=== PATIENT | female | born 1930 | race Caucasian/White ===

== ENCOUNTER 2016-04-06 16:11 | Emergency (ER) | payer OTHER ==
--- NOTE | 2016-04-06 17:48 | DIAGNOSTIC IMAGING REPORT ---
PROCEDURE: XR CHEST 1 VIEW INDICATION: CHEST PAIN TECHNIQUE: Portable AP view 05:11 p.m. COMPARISON: Chest 01/29/14 FINDINGS: Lungs are clear. Heart and mediastinum are normal. There is a central line on the right. The tip is in the superior vena cava. Clips and wires are present from previous cardiac surgery. IMPRESSION: 1. No acute disease.
--- NOTE | 2016-04-07 12:57 | ED CLINICAL REPORT ---
Clinical Report - Physicians/Mid Levels [facility] [address] [place] [address] 04/06/2016 16:12 Patient: EAMON SHORT Time Seen: 16:36. Arrived- By ambulance. Historian- patient and EMS personnel. History limited by vague historian. HISTORY OF PRESENT ILLNESS Chief Complaint: CHEST PAIN. At its maximum, severity described as 7 / 10. When seen in the E.D., it was gone. It is described as sharp and it is described as located in the right chest, central chest and left chest area. No radiation. This started today and is now gone. It was abrupt in onset and has been intermittent. Onset during vomiting during dialysis. The patient has had nausea. She has had vomiting. The vomiting has occurred only once. No blood-tinged emesis, coffee-grounds emesis or frankly bloody emesis. No difficulty breathing or diaphoresis. REVIEW OF SYSTEMS No chills, fever, sweats, calf pain or difficulty breathing. No pedal edema, palpitations, abdominal pain, black stools or bloody stools. No constipation or urinary problems. She has had a moderate cough productive of moderate amounts of clear, yellow sputum (for 2 weeks). She has had diarrhea (recently - gone now). All systems otherwise negative, except as recorded above. 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 Problems: Renal Failure. CVA - Cerebrovascular Accident. End stage renal failure on dialysis. Congestive Heart Failure. Diabetes Mellitus. Hypertension. Additional Surgeries: Amputation Below Knee. Medications: OxyCODONE HCl Oral (Tablet 5 mg) 1-1/2 tablets, every 3 hours as needed. Insulin Lispro (Human) Subcutaneous (Solution 100 unit/mL) (sliding scale 151-175 1 unit 178-200 2 units 201-225 3 units 226-250 4 unit 251-275 5 units 276-300 6 units 301 - 325 7 units 326-350 8 units 351-375 9 units 376-400 10 units over that call ). Insulin Lispro (Human) Subcutaneous 3 units, before meals. Senna Oral (Tablet 8.6 mg) 1 tablet, 2 times a day. Isosorbide Mononitrate ER Oral (Tablet Extended Release 24 Hour 30 mg) 1 tablet, 3 times a day. Docusate Sodium Oral (Capsule 100 mg) 1 capsule, 2 times a day. Carvedilol Oral (Tablet 12.5 mg) 1 tablet, 2 times a day. Calcium Carbonate Oral (Tablet Chewable 500 mg) 2 tablets, 2 times a day. Venlafaxine HCl ER Oral (Tablet Extended Release 24 Hour 75 mg) 1 tablet, at bedtime. Theravim-M Oral 1 tablet, daily. Spironolactone Oral (Tablet 50 mg) 1 tablet, daily. Omeprazole Oral (Capsule Delayed Release 40 mg) 1 capsule, daily. Nepro shake. Latanoprost Ophthalmic 1 drops, bedtime (1 drop right eye). Levofloxacin Oral (Tablet 750 mg) 1 tablet, daily. Furosemide Oral (Tablet 80 mg) 1 tablet, daily. Ferrous Sulfate Oral (Tablet 325 (65 Fe) mg) 1 tablet, daily. Cholecalciferol Oral (Tablet 2000 unit) 1 tablet, daily. Ascorbic Acid Oral (Tablet Chewable 500 mg) 1 tablet, daily. Vitamin c Oral. Atorvastatin Calcium Oral (Tablet 80 mg) 1 tablet, daily. Allergies: Penicillins. SOCIAL HISTORY Former smoker, end date 2011. Residence: [facility] Resides in a senior living. FAMILY HISTORY Heart disease in first-degree relative (sibling); cancer in first-degree relative (mother). ADDITIONAL NOTES The nursing notes have been reviewed. PHYSICAL EXAM Vital Signs: 04/06/2016 16:15 BP: 93/43. HR: 87. RR: 16. Have been reviewed. Appearance: Alert. Eyes: Pupils equal, round and reactive to light. ENT: Pharynx normal. Neck: Normal inspection. Neck supple. No JVD. CVS: Tachycardia. Abnormal rhythm, which is irregularly irregular. Respiratory: No respiratory distress. (rattle over the large airways of the R chest). Abdomen: Soft and nontender. Bowel sounds normal. No organomegaly. No mass. Obese. Skin: Skin warm and dry. Extremities: No calf tenderness. (R BKA). LABS, X-RAYS, AND EKG EKG: Rate: 142. Atrial fibrillation. LBBB. Changes present when compared to prior EKG. (an EKG of 29 January 2014 showed a left bundle branch block however today she is in atrial fibrillation with a rapid ventricular response as well). EKG #2: EKG time: (533). Normal sinus rhythm. Rate: 79. Normal P waves. Normal CHRIS. Wide QRS- intraventricular conduction delay. LBBB. Normal axis. Normal ST and T waves. Prolonged QTc (486). Changes present when compared to prior EKG. (No longer in A fib). The study has been interpreted contemporaneously by me. The study has been independently viewed by me. The EKG appears to be a good tracing. Interpretation time: 533. Chest X-ray: (IMPRESSION: 1. No acute disease.). The X-rays were interpreted by the radiologist and contemporaneously by me. Laboratory Tests: Magnesium: (ELAINE: 04/07/2016 07:05) ( [facility] 04/07/2016 08:40) Final results Test Result Flag Units (Reference) MAGNESIUM 2.3 mg/dL (1.8-2.4) CPK 35 U/L (24-260) TROPONIN I 0.75 ng/mL (0.00-1.5) TROPONIN REFERENCE RANGE:<0.1 NEGATIVE0.1-1.5 INDETERMINANT>1.5 POSITIVE CPK: (ELAINE: 04/07/2016 00:55) ( [facility] 04/07/2016 01:19) Final results Test Result Flag Units (Reference) CPK 32 U/L (24-260) TROPONIN I 0.34 ng/mL (0.00-1.5) TROPONIN REFERENCE RANGE:<0.1 NEGATIVE0.1-1.5 INDETERMINANT>1.5 POSITIVE CBC w Diff: (ELAINE: 04/06/2016 17:00) ( [facility] 04/06/2016 17:09) Final results Test Result Flag Units (Reference) WHITE BLOOD COUNT 8.0 K/uL (4.5-11.5) RED BLOOD COUNT 3.56 L M/uL (4.00-5.20) HEMOGLOBIN 11.9 L gm/dL (12.0-16.0) HEMATOCRIT 36.9 % (36.0-46.0) MEAN CELL VOLUME 104 H fL (80-100) MEAN CORPUSCULAR HGB 34 pg (26-34) MEAN CORPUSCULAR HGB CONC 32 g/dL (31-37) RED CELL DISTRIBUTION WIDTH 15.2 H % (11.6-14.8) PLATELET COUNT 106 L K/uL (150-400) NEUTROPHIL % 85.8 H % (50-75) LYMPH % 8.3 L % (25-40) MONO % 4.7 % (3-14) EOSINOPHIL % 0.8 % (0-4) BASOPHIL % 0.4 % (0-2) BNP: (ELAINE: 04/06/2016 17:00) ( [facility] 04/06/2016 17:33) Final results Test Result Flag Units (Reference) B-TYPE NATRIURETIC PEPTIDE 1170 H pg/ml (5-100) Lipase: (ELAINE: 04/06/2016 17:00) ( [facility] 04/06/2016 17:31) Final results Test Result Flag Units (Reference) LIPASE 168 U/L (73-393) AMYLASE 80 U/L (25-115) THYROID STIMULATING HORMONE 3.606 uIU/mL (0.30-3.74) CHEM 13 PANEL: (ELAINE: 04/06/2016 17:00) ( [facility] 04/06/2016 17:23) Final results Test Result Flag Units (Reference) GLUCOSE 222 H mg/dL (70-110) BUN 34 H mg/dL (7-18) CREATININE 2.3 H mg/dL (0.6-1.3) Estimated GFR 21.42 mL/min Estimated GFR- 25.96 mL/min Note: Persistent reduction over 3 months in eGFR<60 mL/min/1.73 m2 defines CKD. Patients with eGFR values>=60 mL/min/1.73 m2 may also have CKD if evidence ofpersistent proteinuria. Additional information may be foundat www.[email or web address].org. SODIUM 136 mmol/L (136-145) POTASSIUM 4.1 mmol/L (3.5-5.1) CHLORIDE 100 mmol/L (98-107) CARBON DIOXIDE 26 mmol/L (21-32) CALCIUM 7.7 L mg/dL (8.5-10.1) TOTAL PROTEIN 8.4 H g/dL (6.4-8.2) ALBUMIN 2.7 L g/dL (3.3-5.0) BILIRUBIN, TOTAL 0.6 mg/dL (0.0-1.0) ALKALINE PHOSPHATASE 106 U/L (46-116) AST (SGOT) 39 H U/L (15-37) ALT (SGPT) 32 U/L (12-78) CPK 31 U/L (24-260) MAGNESIUM 1.6 L mg/dL (1.8-2.4) TROPONIN I <0.05 ng/mL (0.00-1.5) TROPONIN REFERENCE RANGE:<0.1 NEGATIVE0.1-1.5 INDETERMINANT>1.5 POSITIVE . PROGRESS AND PROCEDURES Course of Care: 21:08 04/06/16. calls were made to [facility], and the [facility]. No beds are available at any of these facilities. I discussed the case with Dr. Dumont at change of shift. We reviewed the patient's history and exam and the results of her studies. He will manage her care and will arrange an appropriate disposition. - MW 09:36 04/07/16. Case D/W Dr. Duffy. Still looking for a bed with dialysis as well as cardiology services. Troponins are elevating, but still in nl range. spoke with cardiology in [place]. Discussed with ball holder transfer. High Tension Tester [place] Also discussed the long transport time and concern for worsening condition. They do have beds available. Discussed with cardiology how we had discharged to have the [place] some [place]. We had called from [place] although a 22, without any success in finding a bed. For example we had contacted [facility], [facility], [facility], [facility], [place] [facility], etc. Reported that they will find a bed. received a call approximately half an hour after had discussion with the transfer service and with cardiology. They will accept the patient. They are however waiting for beds. Half an hour after speaking with the transfer service. They were unable to find a bed available. Unclear exactly what has happened in the patient's transfer. In speaking with the patient shortly after this, the patient flat out refuses to be transferred to any facility or be admitted anywhere. I discussed with the patient her workup here in the emergency department and our concern for heart attack. Patient said to me "i'm not having a heart attack. I had one in the past. I know exactly what it feels like." I discussion with patient in regards to troponin and exactly what this means as well as pathophysiology. The patient is alert and oriented 4. Patient also stated at the end while asking the date " I'm no dummy. " offered patient's food and drink as well as other arrangements if she were to stay. Patient still refuses to stay. Do not feel I can force patient to undergo invasive medical procedures against her will. The patient reports that she lives in a facility and her primary care doctor lives in the same building. Patient reports that she can follow up with her doctor. Patient is aware of the risks of leaving AGAINST MEDICAL ADVICE. Do not feel having patient sign a form discussing this would be of any benefit at this time and would only strained the doctor patient relationship. attempted to contact family however were unsuccessful. Arranged transport for patient and patient left without further incident. Critical care performed (90 minutes). Time is exclusive of separately billable procedures. Time includes: direct patient care, patient reassessment, coordination of patient care, interpretation of data (laboratory data), review of patient's medical records, medical consultation and documentation of patient care. Patient/family counseled. Disposition: Discharged. Condition: serious. CLINICAL IMPRESSION 04/07/2016 11:55 BP: 149/48. HR: 76. O2 saturation: 96%. Hypertensive. Oxygen saturation normal. Acute myocardial infarction with elevated markers and no ST elevation (NSTEMI). INSTRUCTIONS Warnings: GENERAL WARNINGS: Return or contact your physician immediately if your condition worsens or changes unexpectedly, if not improving as expected, or if other problems arise. SPECIFICALLY, return if you develop chest, neck, jaw, shoulder, arm, or back pain, difficulty breathing, a fluttering sensation in your chest, lightheadedness, fainting, excessive fatigue, or sudden sweating. Your Current Medications: CONTINUE TAKING THE FOLLOWING MEDICATIONS: Ascorbic Acid Oral : Tablet Chewable 500 mg, 1 tablet daily. Atorvastatin Calcium Oral : Tablet 80 mg, 1 tablet daily. Calcium Carbonate Oral : Tablet Chewable 500 mg, 2 tablets 2 times a day. Carvedilol Oral : Tablet 12.5 mg, 1 tablet 2 times a day. Cholecalciferol Oral : Tablet 2000 unit, 1 tablet daily. Docusate Sodium Oral : Capsule 100 mg, 1 capsule 2 times a day. Ferrous Sulfate Oral : Tablet 325 (65 Fe) mg, 1 tablet daily. Furosemide Oral : Tablet 80 mg, 1 tablet daily. Insulin Lispro (Human) Subcutaneous : Solution 100 unit/mL, sliding scale 151-175 1 unit 178-200 2 units 201-225 3 units 226-250 4 unit 251-275 5 units 276-300 6 units 301 - 325 7 units 326-350 8 units 351-375 9 units 376-400 10 units over that call MD. Insulin Lispro (Human) Subcutaneous : 3 units before meals. Isosorbide Mononitrate ER Oral : Tablet Extended Release 24 Hour 30 mg, 1 tablet 3 times a day. Latanoprost Ophthalmic : 1 drops bedtime, 1 drop right eye. Levofloxacin Oral : Tablet 750 mg, 1 tablet daily. Quintin saavedra*. Omeprazole Oral : Capsule Delayed Release 40 mg, 1 capsule daily. OxyCODONE HCl Oral : Tablet 5 mg, 1-1/2 tablets every 3 hours as needed. Senna Oral : Tablet 8.6 mg, 1 tablet 2 times a day. Spironolactone Oral : Tablet 50 mg, 1 tablet daily. Theravim-M Oral : 1 tablet daily. Venlafaxine HCl ER Oral : Tablet Extended Release 24 Hour 75 mg, 1 tablet at bedtime. Vitamin c Oral. Follow-up: Return to the emergency department as needed. Follow up with your doctor in one day. Reason for referral: recheck today's concerns. Summary of care provided to patient via paper. Screening today revealed the patient's blood pressure to be in the normal range. The patient should follow up with a primary care provider for blood pressure management. Understanding of the discharge instructions verbalized by patient. Follow-up with: Shital Quinones MD, Cardiology, , [facility] - [facility], [address], [facility], [address] Follow up in three days. Reason for referral: contact if you do not have a ball holder. Summary of care provided to patient via paper. (Electronically signed by Trevor Duffy Dr. 04/10/2016 15:47)
--- NOTE | 2016-04-07 12:57 | ED ORDER SUMMARY ---
..... Patient: EAMON SHORT OrderSheet [facility] VisitID: [id number] [address] [place] [address] 86y, F Registration Date/Time: 04/06/2016 ORDER SHEET Weight: 71.2 kg Allergies: Penicillins GENERAL ORDERS: CMP Urgent (16:45 04/06/2016 MWinterer R.N. verbal order read back to Maury YANCEY) (Ack 17:12 Jody) (17:31 [facility] ER Tech1) CBC w Diff Urgent (16:45 04/06/2016 MWinterer R.N. verbal order read back to Maury YANCEY) (Ack 17:12 Jody) (17:31 [facility] ER Tech1) Cardiac Panel Stat (16:45 04/06/2016 MWinterer R.N. verbal order read back to Maury YANCEY) (Ack 17:12 Jody) (17:31 [facility] ER Tech1) Amylase Urgent (16:45 04/06/2016 MWinterer R.N. verbal order read back to Maury YANCEY) (Ack 17:12 Jody) (17:31 [facility] ER Tech1) Lipase Urgent (16:45 04/06/2016 MWinterer R.N. verbal order read back to Maury YANCEY) (Ack 17:12 Jody) (17:31 [facility] ER Tech1) TSH Urgent (16:45 04/06/2016 MWinterer R.N. verbal order read back to Maury YANCEY) (Ack 17:12 Jody) (17:31 [facility] ER Tech1) Chest 1V Urgent (17:00 04/06/2016 Maury YANCEY) (Ack 17:12 Jody) (17:18 OHdevnandez) Cardiac Cath Lab Manager (Continuous) (17:00 04/06/2016 Maury YANCEY) (17:14 Refugio R.N.) BNP Urgent (17:00 04/06/2016 Maury YANCEY) (Ack 17:12 Jody) (17:31 [facility] ER Tech1) Oxygen (2 L/min) (NC) (17:00 04/06/2016 Maury YANCEY) (17:14 EInderbitzen R.N.) Pulse oximeter (17:00 04/06/2016 Maury YANCEY) (17:14 EInderbitzen R.N.) EKG - ER Stat (17:00 04/06/2016 Maury YANCEY) (17:14 EInderbitzen R.N.) Troponin-I Urgent (00:43 04/07/2016 EInderbitzen R.N. verbal order read back to Mychal Adams) (Ack 0:47 AMcQuoid ER Tech1) (1:17 AMcQuoid ER Tech1) CPK Urgent (00:43 04/07/2016 EInderbitzen R.N. verbal order read back to Mychal Adams) (Ack 0:47 AMcQuoid ER Tech1) (1:17 AMcQuoid ER Tech1) EKG - ER Stat (05:28 04/07/2016 Mychal Adams) (5:53 CHategekimana) CPK Urgent (06:22 04/07/2016 Mychal Adams) (Ack 6:36 AMcQuoid ER Tech1) (13:20 [facility] ER Tech1) Troponin-I Urgent (06:22 04/07/2016 Mychal Adams) (Ack 6:36 AMcQuoid ER Tech1) (13:20 [facility] ER Tech1) Magnesium Urgent (06:22 04/07/2016 Mychal Adams) (Ack 6:36 AMcQuoid ER Tech1) (13:20 [facility] ER Tech1) MEDICATION ORDERS: IV FLUIDS: IV Saline Lock (17:00 04/06/2016 Maury YANCEY) (17:21 EInderbitzen R.N.) Magnesium Sulfate IV 2 gm/50mL (HIGH ALERT MEDICATION, NOW, over 2 hours) (21:30 04/06/2016 Mychal Adams) (Ack 21:47 EInderbitzen R.N.) (21:55 EInderbitzen R.N.) ORDER SHEET NOTES: [Electronically signed by Fiona Dey R.N. (14:16 04/07/2016)] [Electronically signed by Trevor Duffy Dr. (15:47 04/10/2016)] [Electronically locked/signed by Fiona Dey R.N. (14:16 04/07/2016)]
--- NOTE | 2016-04-07 12:57 | ED NURSING NOTES ---
Clinical Report - Nurses [place] [address] [place] [address] 04/06/2016 16:12 Patient: EAMON SHORT TRIAGE Triage time 16:15 Apr 06 2016. Acuity: LEVEL 3. Chief Complaint: CHEST PAIN. SEPSIS SCREEN: Sepsis Screen. Negative (no infection suspected/documented). --16:23 Selin Park R.N. 16:15 04/06/16. BP: 93/43. HR: 87. RR: 16. Pain level now 10/11. --16:23 Selin Park R.N. Weight: 71.2 kg. Height/Length: 64 inches. BMI: 27. --16:14 Selin Park R.N. Medications Atorvastatin Calcium Oral (Tablet 80 mg) 1 tablet, daily. --19:50 Selin Park R.N. Ascorbic Acid Oral (Tablet Chewable 500 mg) 1 tablet, daily. Vitamin c Oral. --19:50 Selin Park R.N. Cholecalciferol Oral (Tablet 2000 unit) 1 tablet, daily. --19:51 Selin Park R.N. Ferrous Sulfate Oral (Tablet 325 (65 Fe) mg) 1 tablet, daily. --19:51 Selin Park R.N. Furosemide Oral (Tablet 80 mg) 1 tablet, daily. --19:51 Seiln Park R.N. Levofloxacin Oral (Tablet 750 mg) 1 tablet, daily. --19:52 Selin Park R.N. Latanoprost Ophthalmic 1 drops, bedtime (1 drop right eye). --19:53 Selin Park R.N. Nepro shake. --19:53 Selin Park R.N. Omeprazole Oral (Capsule Delayed Release 40 mg) 1 capsule, daily. --19:53 Selin Park R.N. Spironolactone Oral (Tablet 50 mg) 1 tablet, daily. --19:54 Selin Park R.N. Theravim-M Oral 1 tablet, daily. --19:54 Selin Park R.N. Venlafaxine HCl ER Oral (Tablet Extended Release 24 Hour 75 mg) 1 tablet, at bedtime. --19:55 Selin Park R.N. Calcium Carbonate Oral (Tablet Chewable 500 mg) 2 tablets, 2 times a day. --19:56 Selin Park R.N. Carvedilol Oral (Tablet 12.5 mg) 1 tablet, 2 times a day. --19:57 Selin Park R.N. Docusate Sodium Oral (Capsule 100 mg) 1 capsule, 2 times a day. --19:57 Selin Park R.N. Isosorbide Mononitrate ER Oral (Tablet Extended Release 24 Hour 30 mg) 1 tablet, 3 times a day. --19:58 Selin Park R.N. Senna Oral (Tablet 8.6 mg) 1 tablet, 2 times a day. --19:59 Selin Park R.N. Insulin Lispro (Human) Subcutaneous 3 units, before meals. --20:00 Selin Park R.N. Insulin Lispro (Human) Subcutaneous (Solution 100 unit/mL) (sliding scale 151-175 1 unit 178-200 2 units 201-225 3 units 226-250 4 unit 251-275 5 units 276-300 6 units 301 - 325 7 units 326-350 8 units 351-375 9 units 376-400 10 units over that call MD). --20:03 Selin Park R.N. OxyCODONE HCl Oral (Tablet 5 mg) 1-1/2 tablets, every 3 hours as needed. --20:03 Selin Park R.N. Medication/allergy information source: the patient. --16:23 Selin Park R.N. Allergies Penicillins. --16:16 Selin Park R.N. History Arrived by EMS. Historian: patient. This started just prior to arrival. ( chest pain while at dialysis today. sl nitro x 1 and pain resolved.). She has had nausea. She has had a cough (3 weeks, productive). No difficulty breathing, sweating episodes, vomiting or fever. Treatment PHOTOGRAMMETRIC COMPILATION SPECIALIST: (nitroglycerine x 1). PAST MEDICAL HX: Immunizations: has received pneumonia vaccine; seasonal influenza. SOCIAL HX: Former smoker. No alcohol use or drug use. No infectious disease exposure. ABUSE ASSESSMENT: No report of abuse. SELF HARM ASSESSMENT: A self harm assessment was performed. The patient answered "no" to the question "Have you recently felt down, depressed, or hopeless?", "Have you noticed less interest or pleasure in doing things?", "Do you have thoughts of harming or killing yourself?", "Are you here because you tried to hurt yourself?", "Have you ever tried to hurt yourself before today?", "Have you recently had thoughts about harming or killing others?" and "Do you have any dangerous items in your possession?". --16:23 Selin Park R.N. NUTRITIONAL RISK ASSESSMENT: The nutritional risk assessment revealed no deficiencies. FUNCTIONAL ASSESSMENT: Functional assessment: no impairments noted. Functional assessment performed: requires assistance with the activities of daily living; mobility impairment present- this mobility impairment is an ongoing problem; wears glasses- this visual impairment is an ongoing problem. The patient is under physician care for hers functional impairment. No communication barrier. No hearing impairment. No cognitive impairment. LEARNING NEEDS ASSESSMENT: The learning needs assessment revealed no barriers. FALL RISK ASSESSMENT: Fall risk assessment completed. Risk factors identified include patient age greater than 65 years and impairment of mobility. Fall interventions initiated. Patient placed on stretcher. Side rails up x2. Brakes on Bed in low position. Patient visible from nurses' station. Instructed not to get up without assistance. SKIN INTEGRITY ASSESSMENT: Skin integrity risk assessment completed. No skin integrity risk identified. --16:24 Selin Park R.N. PROBLEMS: End stage renal failure on dialysis. Congestive Heart Failure. Diabetes Mellitus. Hypertension. --16:17 Selin Park R.N. CVA - Cerebrovascular Accident. --16:25 Selin Park R.N. Interventions ID band on patient. --16:23 Selin Park R.N. PHYSICAL ASSESSMENT ( Vas cath dual port in right upper chest). GENERAL / NEURO / PSYCH: Alert. Oriented X 4. HEENT: Mucous membranes are pink. RESPIRATORY: Respirations not labored. ( rhonchi in bases). CVS: Heart sounds within normal limits. ( edema left arm). Capillary refill less than 2 seconds. GI / : Abdomen soft. EXTREMITIES: No lower extremity edema. ( right below knee amputation). SKIN: Skin is warm and dry. Normal skin turgor. --16:27 Selin Park R.N. NURSING PROGRESS NOTES 16:25 04/06/16. The initial plan of care for this patient includes an assessment with efforts to address the presence of pain; impairment of the cardiovascular system. This plan of care was discussed with the patient. residential framing carpenter, pulse oximeter and NIBP monitor placed on patient; customer support agent- Lead II; monitor alarms on. Patient gowned. Two patient identifiers checked. Call light placed in reach. Side rails up x 2. Bed placed in lowest position. Patient ready for evaluation. --16:25 Selin Park R.N. EKG time: (1638). EKG was ordered, performed by a nurse and shown to the ED physician. --16:55 Adry Richard R.N. 17:00 04/06/16. Patient ID band checked for patient name and birthdate: patient confirmed. Blood samples drawn from the central IV site by nurse ; labeled in presence of the patient and sent to lab: rainbow set: cardiac enzymes (1st set). Dialysis catheter accessed, good blood return noted. Initial blood discarded. Line flushed with 10 mL normal saline post blood draw (5000 units heparin instilled in venous port of dialysis catheter.). --17:07 Selin Park R.N. ( Multiple IV attempts (3) peripherally including ultrasound guided with no success. IV access finally obtained with 22 ga left anterior chest wall.). --17:08 Selin Park R.NSamia 17:00 04/06/2016 Site #1 started via IV in the left antecubital space with an 22g angiocath (IV in left anterior chest). --17:21 Selin Park R.NSamia 17:15 04/06/16. Portable chest x-ray performed and shown to the ED physician. --17:22 Selin Park R.NSamia 17:54 04/06/16. BP: 129/88. HR: 141. RR: 20. O2 saturation: 100%. --17:54 Selin Park R.NSamia 17:54 04/06/16. Cardiac rhythm: atrial fibrillation with rapid ventricular response. The patient is resting quietly. Overall patient status is improved- she states feels better. ( Patient has been repositioned onto right side for comfort.). GENERAL / NEURO / PSYCH: The patient reports anxiety. RESPIRATORY: Denies difficulty breathing. CVS: Denies chest pain. GI / : Denies nausea. ( Patient disposition pending). --17:54 Selin Park R.NSamia 18:39 04/06/16. Cardiac rhythm: atrial fibrillation with rapid ventricular response. --18:39 Selin Park R.NSamia 18:39 04/06/16. BP: 112/81. HR: 140. RR: 20. O2 saturation: 97%. Pain level now 5/10. --18:39 Selin Park R.N. 18:42 04/06/16. The patient is calm and resting quietly. HEENT: Denies headache. RESPIRATORY: Denies difficulty breathing. CVS: Denies chest pain. GI / : Denies nausea. --18:42 Selin Park R.NSamia 20:05 04/06/16. Cardiac rhythm: atrial fibrillation with rapid ventricular response. ( discussing all findings and disposition with patient). --20:05 Selin Park R.NSamia 20:05 04/06/16. BP: 156/81. HR: 88. RR: 16. O2 saturation: 97%. Pain level now 5/10. --20:05 Selin Park R.N. 21:53 04/06/2016 Magnesium Sulfate (Magnesium Sulfate in D5W) IVP 2 gm given over 2 hour(s) via site #1. Allergies verified and confirmed 5 rights. IV patency established. IV site checked: no pain, redness, or swelling. IV flushed thoroughly pre- and post-medication administration. IVP given by RN (via pump). --21:55 Selin Park R.N. 22:03 04/06/16. Cardiac rhythm: atrial fibrillation. The patient is calm and resting quietly. Overall patient status is the same- she states feels the same. RESPIRATORY: No respiratory distress. CVS: Denies chest pain. SKIN: Skin is warm and dry. --22:03 Selin Park R.N. 22:03 04/06/16. BP: 137/56. HR: 87. RR: 16. O2 saturation: 95%. Pain level now 5/10. --22:03 Selin Park R.N. 22:27 04/06/16. ( IV site patent in left anterior chest. No sign of infiltration. No pain). --22:27 Selin Park R.N. 23:58 04/06/16. ( IV magnesium infusion completed. IV flushed gently. No sign of infiltration). --23:58 Selin Park R.N. 00:02 04/07/16. Cardiac rhythm: normal sinus rhythm. --00:02 Selin Park R.N. 00:02 04/07/16. BP: 147/56. HR: 83. RR: 18. O2 saturation: 95%. Pain level now 5/10. --00:02 Selin Park R.N. <<STRICKEN ENTRY-- Urinary catheter. --00:02 Selin Park R.N. --END STRIKE>> accidental marking --00:03 Selin Park R.N. 01:33 04/07/16. Care transferred and report given (to Selin Manjarrez RN). --01:33 Selin Park R.N. Finger stick glucose: 0550: 193 mg/dL. --05:52 Keisha Whitaker EKG time: (0534 AM). EKG was ordered, performed by a tech and shown to the ED physician. --05:55 Keisha Whitaker ( Assumed care, report from [facility]. Pt. sleeping. Repeat troponin drawn by lab.). --07:31 Fiona Dey R.N. 07:26 04/07/16. BP: 159/49. HR: 79. RR: 14. O2 saturation: 95%. --07:31 Fiona Dey R.N. 05:55 04/07/16. BP: 155/50. HR: 77. RR: 15. O2 saturation: 95%. --07:32 Fiona Dey R.N. 04:55 04/07/16. BP: 162/56. HR: 77. RR: 15. O2 saturation: 96%. --07:33 Fiona Dey R.N. ( Lab called for troponin results. Should be resulted shortly.). --08:39 Fiona Dey R.N. ( Lisa Gross called with update. No beds available. Check back at 1500). --10:12 Fiona Dey R.N. 10:10 04/07/16. BP: 166/54. HR: 88. RR: 16. O2 saturation: 97%. --10:12 Fiona Dey R.N. ( many hospitals called for possible placements. 1 hour.). --10:25 Laurence Jaeger ER Tech1 ( Blood sugar check: 155). --12:35 Fiona Dey R.N. late entry - 09:30 Patient resting comfortably, on customer support agent. FEED IN WORKER working to find accepting facility. --12:37 Fiona Dey R.N. 11:55 04/07/16. BP: 149/48. HR: 76. O2 saturation: 96%. --12:38 Fiona Dey R.N. --12:38 Fiona Dey R.N. 10:55 04/07/16. BP: 161/50. HR: 77. O2 saturation: 95%. --12:38 Fiona Dey R.N. 09:55 04/07/16. BP: 166/54. HR: 75. RR: 15. O2 saturation: 96%. --12:39 Fiona Dey R.N. ( Pt. states she does not want to be admitted to hospital. Will attempt to contact family.). --12:43 Fiona Dey R.N. ( attempted to change pt. of wet linen. Pt. is agitated and request the nurse and tech. leave the room. Pt. is dirty with stool. will not allow us to clean her. Pts. belonging placed in bag including shoe.). --14:05 Laurence Jaeger, PAUL Tech1. DISPOSITION / DISCHARGE 14:09 04/07/2016 Site #1 removed upon discharge. --14:14 Fiona Dey R.N. Departure time: 1413. Condition at departure: stable. The goals identified in the patient's plan of care were met. Patient verbalized understanding. Written instructions provided in [place]. The patient was discharged to the [facility] and accompanied by Ambulance. She left the Emergency Department via ambulance and on a stretcher. Transported via ambulance (Report to Saurabh, EMT on transport to [facility] ( IV removed, catheter intact.). Patient's personal items; items were transported with the patient. --14:15 Fiona Dey R.N. 13:55 04/07/16. BP: 149/48. HR: 79. RR: 16. O2 saturation: 97%. --14:15 Fiona Dey R.N. Locked/Released at 04/07/2016 14:16 by Fiona Dey R.N.
--- NOTE | 2016-04-07 12:57 | ED ORDER SUMMARY ---
..... Patient: EAMON SHORT OrderSheet [facility] VisitID: [id number] [address] [place] [address] 86y, F Registration Date/Time: 04/06/2016 ORDER SHEET Weight: 71.2 kg Allergies: Penicillins GENERAL ORDERS: CMP Urgent (16:45 04/06/2016 MWinterer R.N. verbal order read back to Maury YANCEY) (Ack 17:12 Jody) (17:31 [facility] ER Tech1) CBC w Diff Urgent (16:45 04/06/2016 MWinterer R.N. verbal order read back to Maury YANCEY) (Ack 17:12 Jody) (17:31 [facility] ER Tech1) Cardiac Panel Stat (16:45 04/06/2016 MWinterer R.N. verbal order read back to Maury YANCEY) (Ack 17:12 Jody) (17:31 [facility] ER Tech1) Amylase Urgent (16:45 04/06/2016 MWinterer R.N. verbal order read back to Maury YANCEY) (Ack 17:12 Jody) (17:31 [facility] ER Tech1) Lipase Urgent (16:45 04/06/2016 MWinterer R.N. verbal order read back to Maury YANCEY) (Ack 17:12 Jody) (17:31 [facility] ER Tech1) TSH Urgent (16:45 04/06/2016 MWinterer R.N. verbal order read back to Maury YANCEY) (Ack 17:12 Jody) (17:31 [facility] ER Tech1) Chest 1V Urgent (17:00 04/06/2016 Maury YANCEY) (Ack 17:12 Jody) (17:18 OHdevnandez) Advertising Dispatch Clerks Supervisor (Continuous) (17:00 04/06/2016 Maury YANCEY) (17:14 Refugio R.N.) BNP Urgent (17:00 04/06/2016 Maury YANCEY) (Ack 17:12 Jody) (17:31 [facility] ER Tech1) Oxygen (2 L/min) (NC) (17:00 04/06/2016 Maury YANCEY) (17:14 EInderbitzen R.N.) Pulse oximeter (17:00 04/06/2016 Maury YANCEY) (17:14 EInderbitzen R.N.) EKG - ER Stat (17:00 04/06/2016 Maury YANCEY) (17:14 EInderbitzen R.N.) Troponin-I Urgent (00:43 04/07/2016 EInderbitzen R.N. verbal order read back to Mychal Adams) (Ack 0:47 AMcQuoid ER Tech1) (1:17 AMcQuoid ER Tech1) CPK Urgent (00:43 04/07/2016 EInderbitzen R.N. verbal order read back to Mychal Adams) (Ack 0:47 AMcQuoid ER Tech1) (1:17 AMcQuoid ER Tech1) EKG - ER Stat (05:28 04/07/2016 Mychal Adams) (5:53 CHategekimana) CPK Urgent (06:22 04/07/2016 Mychal Adams) (Ack 6:36 AMcQuoid ER Tech1) (13:20 NHouse ER Tech1) Troponin-I Urgent (06:22 04/07/2016 Mychal Adams) (Ack 6:36 AMcQuoid ER Tech1) (13:20 NHouse ER Tech1) Magnesium Urgent (06:22 04/07/2016 Mychal Adams) (Ack 6:36 AMcQuoid ER Tech1) (13:20 NHouse ER Tech1) MEDICATION ORDERS: IV FLUIDS: IV Saline Lock (17:00 04/06/2016 Maury YANCEY) (17:21 EInderbitzen R.N.) Magnesium Sulfate IV 2 gm/50mL (HIGH ALERT MEDICATION, NOW, over 2 hours) (21:30 04/06/2016 Mychal Adams) (Ack 21:47 EInderbitzen R.N.) (21:55 EInderbitzen R.N.) ORDER SHEET NOTES: [Electronically signed by Fiona Dey R.N. (14:16 04/07/2016)] [Electronically signed by Trevor Duffy Dr. (15:47 04/10/2016)] [Electronically locked/signed by Fiona Dey R.N. (14:16 04/07/2016)]
--- NOTE | 2016-04-07 12:57 | ED CLINICAL REPORT ---
Clinical Report - Physicians/Mid Levels [facility] [address] [place] [address] 04/06/2016 16:12 Patient: EAMON SHORT Time Seen: 16:36. Arrived- By ambulance. Historian- patient and EMS personnel. History limited by vague historian. HISTORY OF PRESENT ILLNESS Chief Complaint: CHEST PAIN. At its maximum, severity described as 7 / 10. When seen in the E.D., it was gone. It is described as sharp and it is described as located in the right chest, central chest and left chest area. No radiation. This started today and is now gone. It was abrupt in onset and has been intermittent. Onset during vomiting during dialysis. The patient has had nausea. She has had vomiting. The vomiting has occurred only once. No blood-tinged emesis, coffee-grounds emesis or frankly bloody emesis. No difficulty breathing or diaphoresis. REVIEW OF SYSTEMS No chills, fever, sweats, calf pain or difficulty breathing. No pedal edema, palpitations, abdominal pain, black stools or bloody stools. No constipation or urinary problems. She has had a moderate cough productive of moderate amounts of clear, yellow sputum (for 2 weeks). She has had diarrhea (recently - gone now). All systems otherwise negative, except as recorded above. 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 Problems: Renal Failure. CVA - Cerebrovascular Accident. End stage renal failure on dialysis. Congestive Heart Failure. Diabetes Mellitus. Hypertension. Additional Surgeries: Amputation Below Knee. Medications: OxyCODONE HCl Oral (Tablet 5 mg) 1-1/2 tablets, every 3 hours as needed. Insulin Lispro (Human) Subcutaneous (Solution 100 unit/mL) (sliding scale 151-175 1 unit 178-200 2 units 201-225 3 units 226-250 4 unit 251-275 5 units 276-300 6 units 301 - 325 7 units 326-350 8 units 351-375 9 units 376-400 10 units over that call ). Insulin Lispro (Human) Subcutaneous 3 units, before meals. Senna Oral (Tablet 8.6 mg) 1 tablet, 2 times a day. Isosorbide Mononitrate ER Oral (Tablet Extended Release 24 Hour 30 mg) 1 tablet, 3 times a day. Docusate Sodium Oral (Capsule 100 mg) 1 capsule, 2 times a day. Carvedilol Oral (Tablet 12.5 mg) 1 tablet, 2 times a day. Calcium Carbonate Oral (Tablet Chewable 500 mg) 2 tablets, 2 times a day. Venlafaxine HCl ER Oral (Tablet Extended Release 24 Hour 75 mg) 1 tablet, at bedtime. Theravim-M Oral 1 tablet, daily. Spironolactone Oral (Tablet 50 mg) 1 tablet, daily. Omeprazole Oral (Capsule Delayed Release 40 mg) 1 capsule, daily. Nepro shake. Latanoprost Ophthalmic 1 drops, bedtime (1 drop right eye). Levofloxacin Oral (Tablet 750 mg) 1 tablet, daily. Furosemide Oral (Tablet 80 mg) 1 tablet, daily. Ferrous Sulfate Oral (Tablet 325 (65 Fe) mg) 1 tablet, daily. Cholecalciferol Oral (Tablet 2000 unit) 1 tablet, daily. Ascorbic Acid Oral (Tablet Chewable 500 mg) 1 tablet, daily. Vitamin c Oral. Atorvastatin Calcium Oral (Tablet 80 mg) 1 tablet, daily. Allergies: Penicillins. SOCIAL HISTORY Former smoker, end date 2011. Residence: [facility] Resides in a care home. FAMILY HISTORY Heart disease in first-degree relative (sibling); cancer in first-degree relative (mother). ADDITIONAL NOTES The nursing notes have been reviewed. PHYSICAL EXAM Vital Signs: 04/06/2016 16:15 BP: 93/43. HR: 87. RR: 16. Have been reviewed. Appearance: Alert. Eyes: Pupils equal, round and reactive to light. ENT: Pharynx normal. Neck: Normal inspection. Neck supple. No JVD. CVS: Tachycardia. Abnormal rhythm, which is irregularly irregular. Respiratory: No respiratory distress. (rattle over the large airways of the R chest). Abdomen: Soft and nontender. Bowel sounds normal. No organomegaly. No mass. Obese. Skin: Skin warm and dry. Extremities: No calf tenderness. (R BKA). LABS, X-RAYS, AND EKG EKG: Rate: 142. Atrial fibrillation. LBBB. Changes present when compared to prior EKG. (an EKG of 29 January 2014 showed a left bundle branch block however today she is in atrial fibrillation with a rapid ventricular response as well). EKG #2: EKG time: (533). Normal sinus rhythm. Rate: 79. Normal P waves. Normal CHRIS. Wide QRS- intraventricular conduction delay. LBBB. Normal axis. Normal ST and T waves. Prolonged QTc (486). Changes present when compared to prior EKG. (No longer in A fib). The study has been interpreted contemporaneously by me. The study has been independently viewed by me. The EKG appears to be a good tracing. Interpretation time: 533. Chest X-ray: (IMPRESSION: 1. No acute disease.). The X-rays were interpreted by the radiologist and contemporaneously by me. Laboratory Tests: Magnesium: (ELAINE: 04/07/2016 07:05) ( [facility] 04/07/2016 08:40) Final results Test Result Flag Units (Reference) MAGNESIUM 2.3 mg/dL (1.8-2.4) CPK 35 U/L (24-260) TROPONIN I 0.75 ng/mL (0.00-1.5) TROPONIN REFERENCE RANGE:<0.1 NEGATIVE0.1-1.5 INDETERMINANT>1.5 POSITIVE CPK: (ELAINE: 04/07/2016 00:55) ( [facility] 04/07/2016 01:19) Final results Test Result Flag Units (Reference) CPK 32 U/L (24-260) TROPONIN I 0.34 ng/mL (0.00-1.5) TROPONIN REFERENCE RANGE:<0.1 NEGATIVE0.1-1.5 INDETERMINANT>1.5 POSITIVE CBC w Diff: (ELAINE: 04/06/2016 17:00) ( [facility] 04/06/2016 17:09) Final results Test Result Flag Units (Reference) WHITE BLOOD COUNT 8.0 K/uL (4.5-11.5) RED BLOOD COUNT 3.56 L M/uL (4.00-5.20) HEMOGLOBIN 11.9 L gm/dL (12.0-16.0) HEMATOCRIT 36.9 % (36.0-46.0) MEAN CELL VOLUME 104 H fL (80-100) MEAN CORPUSCULAR HGB 34 pg (26-34) MEAN CORPUSCULAR HGB CONC 32 g/dL (31-37) RED CELL DISTRIBUTION WIDTH 15.2 H % (11.6-14.8) PLATELET COUNT 106 L K/uL (150-400) NEUTROPHIL % 85.8 H % (50-75) LYMPH % 8.3 L % (25-40) MONO % 4.7 % (3-14) EOSINOPHIL % 0.8 % (0-4) BASOPHIL % 0.4 % (0-2) BNP: (ELAINE: 04/06/2016 17:00) ( [facility] 04/06/2016 17:33) Final results Test Result Flag Units (Reference) B-TYPE NATRIURETIC PEPTIDE 1170 H pg/ml (5-100) Lipase: (ELAINE: 04/06/2016 17:00) ( [facility] 04/06/2016 17:31) Final results Test Result Flag Units (Reference) LIPASE 168 U/L (73-393) AMYLASE 80 U/L (25-115) THYROID STIMULATING HORMONE 3.606 uIU/mL (0.30-3.74) CHEM 13 PANEL: (ELAINE: 04/06/2016 17:00) ( [facility] 04/06/2016 17:23) Final results Test Result Flag Units (Reference) GLUCOSE 222 H mg/dL (70-110) BUN 34 H mg/dL (7-18) CREATININE 2.3 H mg/dL (0.6-1.3) Estimated GFR 21.42 mL/min Estimated GFR- 25.96 mL/min Note: Persistent reduction over 3 months in eGFR<60 mL/min/1.73 m2 defines CKD. Patients with eGFR values>=60 mL/min/1.73 m2 may also have CKD if evidence ofpersistent proteinuria. Additional information may be foundat www.[email or web address].org. SODIUM 136 mmol/L (136-145) POTASSIUM 4.1 mmol/L (3.5-5.1) CHLORIDE 100 mmol/L (98-107) CARBON DIOXIDE 26 mmol/L (21-32) CALCIUM 7.7 L mg/dL (8.5-10.1) TOTAL PROTEIN 8.4 H g/dL (6.4-8.2) ALBUMIN 2.7 L g/dL (3.3-5.0) BILIRUBIN, TOTAL 0.6 mg/dL (0.0-1.0) ALKALINE PHOSPHATASE 106 U/L (46-116) AST (SGOT) 39 H U/L (15-37) ALT (SGPT) 32 U/L (12-78) CPK 31 U/L (24-260) MAGNESIUM 1.6 L mg/dL (1.8-2.4) TROPONIN I <0.05 ng/mL (0.00-1.5) TROPONIN REFERENCE RANGE:<0.1 NEGATIVE0.1-1.5 INDETERMINANT>1.5 POSITIVE . PROGRESS AND PROCEDURES Course of Care: 21:08 04/06/16. calls were made to [facility], and the [facility]. No beds are available at any of these facilities. I discussed the case with Dr. Dumont at change of shift. We reviewed the patient's history and exam and the results of her studies. He will manage her care and will arrange an appropriate disposition. - MW 09:36 04/07/16. Case D/W Dr. Duffy. Still looking for a bed with dialysis as well as cardiology services. Troponins are elevating, but still in nl range. spoke with cardiology in [place]. Discussed with tool and die machinist transfer. [facility] [place] Also discussed the long transport time and concern for worsening condition. They do have beds available. Discussed with cardiology how we had discharged to have the [place] some [place] We had called from [place] although a 22, without any success in finding a bed. For example we had contacted [facility], [facility], [facility], [facility], [facility], etc. Reported that they will find a bed. received a call approximately half an hour after had discussion with the transfer service and with cardiology. They will accept the patient. They are however waiting for beds. Half an hour after speaking with the transfer service. They were unable to find a bed available. Unclear exactly what has happened in the patient's transfer. In speaking with the patient shortly after this, the patient flat out refuses to be transferred to any facility or be admitted anywhere. I discussed with the patient her workup here in the emergency department and our concern for heart attack. Patient said to me "i'm not having a heart attack. I had one in the past. I know exactly what it feels like." I discussion with patient in regards to troponin and exactly what this means as well as pathophysiology. The patient is alert and oriented 4. Patient also stated at the end while asking the date " I'm no dummy. " offered patient's food and drink as well as other arrangements if she were to stay. Patient still refuses to stay. Do not feel I can force patient to undergo invasive medical procedures against her will. The patient reports that she lives in a facility and her primary care doctor lives in the same building. Patient reports that she can follow up with her doctor. Patient is aware of the risks of leaving AGAINST MEDICAL ADVICE. Do not feel having patient sign a form discussing this would be of any benefit at this time and would only strained the doctor patient relationship. attempted to contact family however were unsuccessful. Arranged transport for patient and patient left without further incident. Critical care performed (90 minutes). Time is exclusive of separately billable procedures. Time includes: direct patient care, patient reassessment, coordination of patient care, interpretation of data (laboratory data), review of patient's medical records, medical consultation and documentation of patient care. Patient/family counseled. Disposition: Discharged. Condition: serious. CLINICAL IMPRESSION 04/07/2016 11:55 BP: 149/48. HR: 76. O2 saturation: 96%. Hypertensive. Oxygen saturation normal. Acute myocardial infarction with elevated markers and no ST elevation (NSTEMI). INSTRUCTIONS Warnings: GENERAL WARNINGS: Return or contact your physician immediately if your condition worsens or changes unexpectedly, if not improving as expected, or if other problems arise. SPECIFICALLY, return if you develop chest, neck, jaw, shoulder, arm, or back pain, difficulty breathing, a fluttering sensation in your chest, lightheadedness, fainting, excessive fatigue, or sudden sweating. Your Current Medications: CONTINUE TAKING THE FOLLOWING MEDICATIONS: Ascorbic Acid Oral : Tablet Chewable 500 mg, 1 tablet daily. Atorvastatin Calcium Oral : Tablet 80 mg, 1 tablet daily. Calcium Carbonate Oral : Tablet Chewable 500 mg, 2 tablets 2 times a day. Carvedilol Oral : Tablet 12.5 mg, 1 tablet 2 times a day. Cholecalciferol Oral : Tablet 2000 unit, 1 tablet daily. Docusate Sodium Oral : Capsule 100 mg, 1 capsule 2 times a day. Ferrous Sulfate Oral : Tablet 325 (65 Fe) mg, 1 tablet daily. Furosemide Oral : Tablet 80 mg, 1 tablet daily. Insulin Lispro (Human) Subcutaneous : Solution 100 unit/mL, sliding scale 151-175 1 unit 178-200 2 units 201-225 3 units 226-250 4 unit 251-275 5 units 276-300 6 units 301 - 325 7 units 326-350 8 units 351-375 9 units 376-400 10 units over that call MD. Insulin Lispro (Human) Subcutaneous : 3 units before meals. Isosorbide Mononitrate ER Oral : Tablet Extended Release 24 Hour 30 mg, 1 tablet 3 times a day. Latanoprost Ophthalmic : 1 drops bedtime, 1 drop right eye. Levofloxacin Oral : Tablet 750 mg, 1 tablet daily. Quintin saavedra*. Omeprazole Oral : Capsule Delayed Release 40 mg, 1 capsule daily. OxyCODONE HCl Oral : Tablet 5 mg, 1-1/2 tablets every 3 hours as needed. Senna Oral : Tablet 8.6 mg, 1 tablet 2 times a day. Spironolactone Oral : Tablet 50 mg, 1 tablet daily. Theravim-M Oral : 1 tablet daily. Venlafaxine HCl ER Oral : Tablet Extended Release 24 Hour 75 mg, 1 tablet at bedtime. Vitamin c Oral. Follow-up: Return to the emergency department as needed. Follow up with your doctor in one day. Reason for referral: recheck today's concerns. Summary of care provided to patient via paper. Screening today revealed the patient's blood pressure to be in the normal range. The patient should follow up with a primary care provider for blood pressure management. Understanding of the discharge instructions verbalized by patient. Follow-up with: Shital Quinones MD, Cardiology, , [facility], [address], [facility], [address] Follow up in three days. Reason for referral: contact if you do not have a tool and die machinist. Summary of care provided to patient via paper. (Electronically signed by Trevor Duffy Dr. 04/10/2016 15:47)
--- NOTE | 2016-04-10 15:48 | ED DISCHARGE INSTRUCTIONS ---
Patient: EAMON SHORT General Instructions [facility] VisitID: [id number] [address] [place] [address] 86y, F Registration Date/Time: 04/06/2016 04/07/2016 11:55 BP: 149/48. HR: 76. O2 saturation: 96%. Hypertensive. Oxygen saturation normal. Acute myocardial infarction with elevated markers and no ST elevation (NSTEMI). INSTRUCTIONS Warnings: GENERAL WARNINGS: Return or contact your physician immediately if your condition worsens or changes unexpectedly, if not improving as expected, or if other problems arise. SPECIFICALLY, return if you develop chest, neck, jaw, shoulder, arm, or back pain, difficulty breathing, a fluttering sensation in your chest, lightheadedness, fainting, excessive fatigue, or sudden sweating. Your Current Medications: CONTINUE TAKING THE FOLLOWING MEDICATIONS: Ascorbic Acid Oral : Tablet Chewable 500 mg, 1 tablet daily. Atorvastatin Calcium Oral : Tablet 80 mg, 1 tablet daily. Calcium Carbonate Oral : Tablet Chewable 500 mg, 2 tablets 2 times a day. Carvedilol Oral : Tablet 12.5 mg, 1 tablet 2 times a day. Cholecalciferol Oral : Tablet 2000 unit, 1 tablet daily. Docusate Sodium Oral : Capsule 100 mg, 1 capsule 2 times a day. Ferrous Sulfate Oral : Tablet 325 (65 Fe) mg, 1 tablet daily. Furosemide Oral : Tablet 80 mg, 1 tablet daily. Insulin Lispro (Human) Subcutaneous : Solution 100 unit/mL, sliding scale 151-175 1 unit 178-200 2 units 201-225 3 units 226-250 4 unit 251-275 5 units 276-300 6 units 301 - 325 7 units 326-350 8 units 351-375 9 units 376-400 10 units over that call . Insulin Lispro (Human) Subcutaneous : 3 units before meals. Isosorbide Mononitrate ER Oral : Tablet Extended Release 24 Hour 30 mg, 1 tablet 3 times a day. Latanoprost Ophthalmic : 1 drops bedtime, 1 drop right eye. Levofloxacin Oral : Tablet 750 mg, 1 tablet daily. Nepro madike*. Omeprazole Oral : Capsule Delayed Release 40 mg, 1 capsule daily. OxyCODONE HCl Oral : Tablet 5 mg, 1-1/2 tablets every 3 hours as needed. Senna Oral : Tablet 8.6 mg, 1 tablet 2 times a day. Spironolactone Oral : Tablet 50 mg, 1 tablet daily. Theravim-M Oral : 1 tablet daily. Venlafaxine HCl ER Oral : Tablet Extended Release 24 Hour 75 mg, 1 tablet at bedtime. Vitamin c Oral. Follow-up: Return to the emergency department as needed. Follow up with your doctor in one day. Reason for referral: recheck today's concerns. Summary of care provided to patient via paper. Screening today revealed the patient's blood pressure to be in the normal range. The patient should follow up with a primary care provider for blood pressure management. Understanding of the discharge instructions verbalized by patient. Follow-up with: Shital Quinones MD, Cardiology, , [facility], [address] [place] [address], [facility], [address] Follow up in three days. Reason for referral: contact if you do not have a public health dentist. Summary of care provided to patient via paper. (Electronically signed by Trevor Duffy Dr. 04/10/2016 15:47)
--- NOTE | 2016-04-10 15:48 | ED MED RECONCILIATION SUMMARY ---
Patient: EAMON SHORT Medication Reconciliation Report [facility] VisitID: [id number] [address] [place] [address] 86y, F Registration Date/Time: 04/06/2016 Weight: 71.2 kg Height/Length: 64 in. BMI: 27.0 ALLERGIES: Penicillins The patient's Home Medications are listed below: CONTINUE TAKING THE FOLLOWING MEDICATIONS: Ascorbic Acid Oral (500 mg) 1 tablet, daily Atorvastatin Calcium Oral (80 mg) 1 tablet, daily Calcium Carbonate Oral (500 mg) 2 tablets, 2 times a day Carvedilol Oral (12.5 mg) 1 tablet, 2 times a day Cholecalciferol Oral (2000 unit) 1 tablet, daily Docusate Sodium Oral (100 mg) 1 capsule, 2 times a day Ferrous Sulfate Oral (325 (65 Fe) mg) 1 tablet, daily Furosemide Oral (80 mg) 1 tablet, daily Insulin Lispro (Human) Subcutaneous (100 unit/mL), sliding scale 151-175 1 [id number] 2 -103 3 -149 4 [id number] 5 -381 6 pgilj233 - 325 7 -283 8 [id number] 9 [id number] 10 unitsover that call MD Insulin Lispro (Human) Subcutaneous 3 units, before meals Isosorbide Mononitrate ER Oral (30 mg) 1 tablet, 3 times a day Latanoprost Ophthalmic 1 drops, bedtime, 1 drop right eye Levofloxacin Oral (750 mg) 1 tablet, daily Nepro shake Omeprazole Oral (40 mg) 1 capsule, daily OxyCODONE HCl Oral (5 mg) 1-1/2 tablets, every 3 hours as needed Senna Oral (8.6 mg) 1 tablet, 2 times a day Spironolactone Oral (50 mg) 1 tablet, daily Theravim-M Oral 1 tablet, daily Venlafaxine HCl ER Oral (75 mg) 1 tablet, at bedtime Vitamin c Oral The source(s) of the original Home Medication information: patient The following Medications were given to the patient in the Emergency Department: Magnesium Sulfate [IVP] IVP 2 gm, administered: 04/06/2016 9:53:00 PM The following Medications were prescribed to the patient: None.
--- NOTE | 2016-04-10 15:48 | ED DISCHARGE INSTRUCTIONS ---
Patient: EAMON SHORT General Instructions [facility] VisitID: [id number] [address] [place] [address] 86y, F Registration Date/Time: 04/06/2016 04/07/2016 11:55 BP: 149/48. HR: 76. O2 saturation: 96%. Hypertensive. Oxygen saturation normal. Acute myocardial infarction with elevated markers and no ST elevation (NSTEMI). INSTRUCTIONS Warnings: GENERAL WARNINGS: Return or contact your physician immediately if your condition worsens or changes unexpectedly, if not improving as expected, or if other problems arise. SPECIFICALLY, return if you develop chest, neck, jaw, shoulder, arm, or back pain, difficulty breathing, a fluttering sensation in your chest, lightheadedness, fainting, excessive fatigue, or sudden sweating. Your Current Medications: CONTINUE TAKING THE FOLLOWING MEDICATIONS: Ascorbic Acid Oral : Tablet Chewable 500 mg, 1 tablet daily. Atorvastatin Calcium Oral : Tablet 80 mg, 1 tablet daily. Calcium Carbonate Oral : Tablet Chewable 500 mg, 2 tablets 2 times a day. Carvedilol Oral : Tablet 12.5 mg, 1 tablet 2 times a day. Cholecalciferol Oral : Tablet 2000 unit, 1 tablet daily. Docusate Sodium Oral : Capsule 100 mg, 1 capsule 2 times a day. Ferrous Sulfate Oral : Tablet 325 (65 Fe) mg, 1 tablet daily. Furosemide Oral : Tablet 80 mg, 1 tablet daily. Insulin Lispro (Human) Subcutaneous : Solution 100 unit/mL, sliding scale 151-175 1 unit 178-200 2 units 201-225 3 units 226-250 4 unit 251-275 5 units 276-300 6 units 301 - 325 7 units 326-350 8 units 351-375 9 units 376-400 10 units over that call . Insulin Lispro (Human) Subcutaneous : 3 units before meals. Isosorbide Mononitrate ER Oral : Tablet Extended Release 24 Hour 30 mg, 1 tablet 3 times a day. Latanoprost Ophthalmic : 1 drops bedtime, 1 drop right eye. Levofloxacin Oral : Tablet 750 mg, 1 tablet daily. Nepro madike*. Omeprazole Oral : Capsule Delayed Release 40 mg, 1 capsule daily. OxyCODONE HCl Oral : Tablet 5 mg, 1-1/2 tablets every 3 hours as needed. Senna Oral : Tablet 8.6 mg, 1 tablet 2 times a day. Spironolactone Oral : Tablet 50 mg, 1 tablet daily. Theravim-M Oral : 1 tablet daily. Venlafaxine HCl ER Oral : Tablet Extended Release 24 Hour 75 mg, 1 tablet at bedtime. Vitamin c Oral. Follow-up: Return to the emergency department as needed. Follow up with your doctor in one day. Reason for referral: recheck today's concerns. Summary of care provided to patient via paper. Screening today revealed the patient's blood pressure to be in the normal range. The patient should follow up with a primary care provider for blood pressure management. Understanding of the discharge instructions verbalized by patient. Follow-up with: Shital Quinones MD, Cardiology, , [facility], [address] [place] [address], [facility], [address] Follow up in three days. Reason for referral: contact if you do not have a home health scheduler. Summary of care provided to patient via paper. (Electronically signed by Trevor Duffy Dr. 04/10/2016 15:47)
--- NOTE | 2016-04-10 15:48 | ED MAR SUMMARY ---
..... Medication Administration Record [facility] [address] [place] [address] Patient: EAMON SHORT Visit ID: [id number] 86y, F Weight: 71.2 kg Height/Length: 64 in BMI: 27 ALLERGIES: Penicillins Given 21:53 04/06/2016 [place] R.N. Medication Administered: MAGNESIUM SULFATE [IVP] (MAGNESIUM SULFATE IN D5W), Dose: 2 gm IVP over 2 hour(s), Site: #1 left AC. Medication Ordered: Magnesium Sulfate IV 2 gm/50mL (HIGH ALERT MEDICATION, NOW, over 2 hours).
--- NOTE | 2016-04-10 15:48 | ED MED RECONCILIATION SUMMARY ---
Patient: EAMON SHORT Medication Reconciliation Report [facility] VisitID: [id number] [address] [place] [address] 86y, F Registration Date/Time: 04/06/2016 Weight: 71.2 kg Height/Length: 64 in. BMI: 27.0 ALLERGIES: Penicillins The patient's Home Medications are listed below: CONTINUE TAKING THE FOLLOWING MEDICATIONS: Ascorbic Acid Oral (500 mg) 1 tablet, daily Atorvastatin Calcium Oral (80 mg) 1 tablet, daily Calcium Carbonate Oral (500 mg) 2 tablets, 2 times a day Carvedilol Oral (12.5 mg) 1 tablet, 2 times a day Cholecalciferol Oral (2000 unit) 1 tablet, daily Docusate Sodium Oral (100 mg) 1 capsule, 2 times a day Ferrous Sulfate Oral (325 (65 Fe) mg) 1 tablet, daily Furosemide Oral (80 mg) 1 tablet, daily Insulin Lispro (Human) Subcutaneous (100 unit/mL), sliding scale 151-175 1 [id number] 2 [id number] 3 -688 4 [id number] 5 [id number] 6 jivsy908 - 325 7 [id number] 8 [id number] 9 [id number] 10 unitsover that call MD Insulin Lispro (Human) Subcutaneous 3 units, before meals Isosorbide Mononitrate ER Oral (30 mg) 1 tablet, 3 times a day Latanoprost Ophthalmic 1 drops, bedtime, 1 drop right eye Levofloxacin Oral (750 mg) 1 tablet, daily Nepro shake Omeprazole Oral (40 mg) 1 capsule, daily OxyCODONE HCl Oral (5 mg) 1-1/2 tablets, every 3 hours as needed Senna Oral (8.6 mg) 1 tablet, 2 times a day Spironolactone Oral (50 mg) 1 tablet, daily Theravim-M Oral 1 tablet, daily Venlafaxine HCl ER Oral (75 mg) 1 tablet, at bedtime Vitamin c Oral The source(s) of the original Home Medication information: patient The following Medications were given to the patient in the Emergency Department: Magnesium Sulfate [IVP] IVP 2 gm, administered: 04/06/2016 9:53:00 PM The following Medications were prescribed to the patient: None.
--- NOTE | 2016-04-10 15:48 | ED MAR SUMMARY ---
..... Medication Administration Record [facility] [address] [place] [address] Patient: EAMON SHORT Visit ID: [id number] 86y, F Weight: 71.2 kg Height/Length: 64 in BMI: 27 ALLERGIES: Penicillins Given 21:53 04/06/2016 [place] R.N. Medication Administered: MAGNESIUM SULFATE [IVP] (MAGNESIUM SULFATE IN D5W), Dose: 2 gm IVP over 2 hour(s), Site: #1 left AC. Medication Ordered: Magnesium Sulfate IV 2 gm/50mL (HIGH ALERT MEDICATION, NOW, over 2 hours).
== END 2016-04-07 14:10 | disposition home or self-care (01) ==
LOC: ED SRH 16:11
DX: I21.4 Non-ST elevation (NSTEMI) myocardial infarction (principal); I13.2 Hypertensive heart and chronic kidney disease with heart failure and with stage 5 chronic kidney disease, or end stage renal disease; I50.9 Heart failure, unspecified; E11.22 Type 2 diabetes mellitus with diabetic chronic kidney disease; N18.6 End stage renal disease; Z79.4 Long term (current) use of insulin; Z88.0 Allergy status to penicillin; Z87.891 Personal history of nicotine dependence; Z99.2 Dependence on renal dialysis